=== PATIENT | female | born 1960 | race Caucasian/White ===

== ENCOUNTER → 2016-12-29 | Day surgery (SDC) | payer OTHER ==
[~2016-12-29] MED LIST: BUPIVACAINE HCL PF 0.5% 10 ML VIAL ONE; ISOSULFAN BLUE 50 MG/5 ML VIAL SQ ONE; KETOROLAC TROMETHAMINE 30 MG/ML (IVP) VIAL ONE; LACTATED RINGER'S 1000 ML INJ 1,000 ML ONE; MEPERIDINE HCL 25 MG/ML VIAL ONE; MIDAZOLAM HCL 2 MG/2 ML VIAL ONE; ONDANSETRON HCL 4 MG/2 ML VIAL IV PUSH ONE; PROPOFOL 200 MG/20 ML AMP IV ONE; SODIUM CHLORIDE 0.9% INJ 10 ML ONE; ceFAZolin 2 GM PREMIX 50 ML ONE
--- NOTE | 2016-12-29 16:01 | TN ---
cc: CYNTHIA GROVE DATE OF SURGERY: 12/29/2016. PRINCIPAL DIAGNOSIS: Right breast cancer PROCEDURE PERFORMED: Right breast needle-localized lumpectomy and right axillary sentinel lymph node biopsy. SURGEON: Cynthia Grove MD. ANESTHESIA: General via LMA device. INDICATIONS FOR THE PROCEDURE: The patient is a 56-year-old female who presented with what appears to be multifocal right breast cancer involving the lower inner quadrant. Three separate lesions were identified but only one was biopsied. She now presents for excision of all the lesions as well as axillary staging. FINDINGS AT THE TIME OF SURGERY: Newton lymph node biopsy demonstrated five sentinel nodes. #1 was 2491 and was 1+ blue. #2 was 386 and was 1+ blue. #3 was 225 and was 2+ blue. #4 was 187 and was 2+ blue. #5 was 128 with no blue. TouchPrep analysis was not performed. Specimen ultrasound did demonstrate an intact wire and all three lesions were identified within the resected tissue. DESCRIPTION OF THE PROCEDURE IN DETAIL: After informed consent was obtained and site verification was performed, the patient was brought to the radiology suite where she underwent peritumoral radionuclide injection as well as needle localization of her lesions. This was done using ultrasound guidance and she was then brought to the major operating room where she underwent general anesthesia via LMA device. She was given a single dose of IV Ancef and sequential compression hose were placed. The lesions were identified at six o'clock, 3 cm from the nipple, five o'clock 3 cm from the nipple and five o'clock 4 cm from the nipple. The breast was prepped and draped in sterile fashion. Three mL of half-strength Lymphazurin were then injected in the subareolar right breast and a 5-minute massage was performed. An incision was anesthetized at the inferior aspect of the right axillary hairline and both sharp and electrocautery dissection were performed until the clavipectoral fascia was divided and the level I axilla was entered. Five sentinel lymph nodes were circumferentially dissected free from surrounding structures in low level I using the harmonic scalpel. Newton lymph node #1 was actually in the axillary tail of the breast. Good hemostasis was noted and the wound was closed using interrupted 3-0 Vicryl subcutaneous sutures and a 4-0 Monocryl subcuticular suture. Attention was then turned to the right breast where a lateral wire was identified going over the top of the lesions in the lower inner right breast. A radial skin incision at six o'clock was anesthetized with 0.5% Marcaine plain and incised sharply. Sharp and electrocautery dissection was then performed until the wire entry point through the skin was identified and secured with a hemostat. The wire was cut off at the skin with pin cutters and a 2-0 silk transfixion suture was placed at the wire entry point into the breast tissue. Sharp and electrocautery dissection was then performed circumferentially around the wire and the specimen was oriented with two sutures laterally, one long suture anteriorly, and one short suture superiorly. Inspection of the specimen did demonstrate that the inferior and anterior margin appeared close. The inferior medial margin was re-excised with a stitch on the new margin and this was sent as a permanent specimen. The anterior margin was inspected but it was subcutaneous fat and skin and this was not excised. Hemostasis was obtained using electrocautery and the wound was closed using a 3-0 Vicryl subcutaneous suture and a 4-0 Monocryl subcuticular suture. Steri-Strips and a sterile dressing were applied. The patient tolerated the procedure well with an estimated blood loss of 50 mL and she was extubated in the operating room and brought to recovery room in good condition. All sponge and needle counts were correct at the conclusion of the case. MD TIFFANY Oliva/DILIA /1:32 PM /3:46 PM
== END | disposition home or self-care (01) ==
LOC: ESDC 07:07
PROVIDERS: ATTEND Surgery
DX: C50.311 Malignant neoplasm of lower-inner quadrant of right female breast (principal)
CPT/HCPCS: 00400; 01610; 19125; 38525; 38792; 88307; J0690; J1885; J2175; J2250; J2405; J3010; J7120; Q9968

== ENCOUNTER → 2017-02-07 | Day surgery (SDC) | payer OTHER ==
--- NOTE | 2017-02-05 09:05 | TH ---
cc: CYNTHIA GROVE DATE: 02/07/2017 [facility] #[id number]. DATE OF 1960 PRINCIPAL DIAGNOSIS Right breast cancer. ATTENDING PHYSICIAN Cynthia Grove HISTORY OF PRESENT ILLNESS The patient is a 56-year-old noted to have multiple right breast masses on a mammogram at [facility] in October of 2016. A diagnostic right breast mammogram and ultrasound confirmed a 1.4-cm hypoechoic mass at 5 o'clock 3 cm from the nipple and a second mass at 6 o'clock 3 cm from the nipple which was 4 mm. There was a third hypoechoic nodule at 5 o'clock 4 cm from the nipple and ultrasound-guided core biopsy was recommended. She subsequently had her biopsy performed for the 5 o'clock lesion at 3 cm from the nipple and this demonstrated poorly differentiated invasive ductal carcinoma. The other lesions were not biopsy. MEDICAL PROBLEMS Include hypertension and nicotine addiction. PAST SURGICAL HISTORY She has had no prior surgery. CURRENT MEDICATIONS 1. Amlodipine 5 milligrams daily. 2. Simvastatin 20 milligrams daily. ALLERGIES She has no drug allergies. REPRODUCTIVE HISTORY G3, P3. Menarche age 14, first child age 25, menopause age 50. She does not take hormone replacement therapy. FAMILY HISTORY Noncontributory. SOCIAL HISTORY She has smoked half a pack of cigarettes a day for more than 30 years. REVIEW OF SYSTEMS 12-point review of systems was otherwise unremarkable. PHYSICAL EXAMINATION She was 5.6 and weighed 185 pounds with a BMI of 30. VITAL SIGNS: Blood pressure was 147/90 with a temperature 97, heart rate 82, respirations 20. HEENT: Exam was unremarkable. NECK: The neck was supple with no adenopathy or thyromegaly. CHEST: Clear throughout. CARDIAC: Exam was unremarkable. BREASTS: Exam revealed fibrocystic changes and the left breast was larger than the right. There was a healing right axillary and radial 6 o'clock scar. ABDOMEN: The abdomen was soft and nontender. The remainder of her exam was unremarkable. IMPRESSION Ms. Toney had multifocal right breast cancer and opted for right breast lumpectomy and sentinel lymph node biopsy. All three lesions were removed and she had five negative sentinel nodes with a 1.7 cm invasive poorly differentiated carcinoma and extensive DCIS. The margins were negative and the tumor was ER 97%, MA 42%, and HER2/jax negative. She has seen medical oncology and adjuvant chemotherapy was recommended. She also had Oncotype DX testing which revealed a high recurrent score. She understands the risks and benefits of adjuvant chemotherapy and [id number] placement and has now agreed to the procedure. MD TIFFANY Oliva/DAKOTA /4:01 PM /9:01 AM
[~2017-02-07] MED LIST changes: -BUPIVACAINE HCL PF 0.5% 10 ML VIAL ONE; +BUPIVACAINE/EPINEPHRINE 0.5% PF 10 ML VIAL ONE; +HEPARIN SODIUM - IV 10,000 UNITS/10 ML VIAL ONE; -ISOSULFAN BLUE 50 MG/5 ML VIAL SQ ONE; -MEPERIDINE HCL 25 MG/ML VIAL ONE; -ONDANSETRON HCL 4 MG/2 ML VIAL IV PUSH ONE; -PROPOFOL 200 MG/20 ML AMP IV ONE; +PROPOFOL 500 MG/50 ML BTL IV ONE; +SODIUM CHLORIDE 0.9% 20 ML VIAL ONE; -SODIUM CHLORIDE 0.9% INJ 10 ML ONE
--- NOTE | 2017-02-07 15:05 | TN ---
cc: CYNTHIA GROVE DATE OF SURGERY: 02/07/2017 PRINCIPAL DIAGNOSIS Right breast cancer. PROCEDURE PERFORMED Left subclavian [id number] placement. SURGEON Cynthia Grove MD ANESTHESIA TIVA. INDICATION The patient is a 56-year-old female with right breast cancer who had a recent needle-localized lumpectomy and sentinel lymph node biopsy. She had a high oncotype DX recurrent score and will require adjuvant chemotherapy. She now presents for port placement to facilitate adjuvant treatment. FINDINGS AT THE TIME OF SURGERY Normal left subclavian anatomy was identified. PROCEDURE PERFORMED After informed consent was obtained and site verification was performed, the patient was brought to the major operating room where she was given IV sedation. She received a single dose of IV Ancef and sequential compression hose were placed. The left chest and right chest as well as the neck were prepped and draped in sterile fashion. The patient was then placed in Trendelenburg and the left subclavian vein was accessed via percutaneous cannulation without difficulty. A J-wire advanced easily into the central circulation via the Seldinger technique where its position was confirmed with fluoroscopy. Local analgesia was then infiltrated around the wire and both sharp and electrocautery dissection were performed until a subcutaneous pocket for the reservoir was created. The catheter was measured out at 30 cm and cut off. A peel-away sheath and introducer were then advanced over the wire and the introducer and wire were removed. The catheter advanced easily through the peel-away sheath which was then removed. Fluoroscopy demonstrated good position of the catheter tip at 19 cm. It was cut off at that point and secured to the reservoir which was noted to flush and aspirate easily. The reservoir was placed in the subcutaneous pocket and secured to the chest wall with two 2-0 Prolene sutures. Good hemostasis was noted and the wound was closed using interrupted 3-0 Vicryl subcutaneous sutures and 4-0 Monocryl subcuticular suture. Steri-Strips and sterile dressing were applied. The patient tolerated the procedure well and was brought to the recovery room where chest x-ray is pending at the time of this dictation. Cynthia Grove MD CEW/TLL /2:43 PM 2:55 PM
== END | disposition home or self-care (01) ==
LOC: ESDC 11:37
PROVIDERS: ATTEND Surgery
DX: Z45.2 Encounter for adjustment and management of vascular access device (principal); C50.811 Malignant neoplasm of overlapping sites of right female breast; I10 Essential (primary) hypertension; F17.210 Nicotine dependence, cigarettes, uncomplicated
CPT/HCPCS: 00532; 36561; 77001; C1788; J0690; J1644; J1885; J2250; J3010; J7120